=== PATIENT | female | born 1955 | race Caucasian/White ===

== ENCOUNTER 2017-09-10 06:22 | Observation (INO) | payer OTHER ==
[2017-09-08 15:50] LABS: BASOPHILS % 0.4 % (0.0-1.0); EOSINOPHILS # (AUTO) 0.1 (0.0-0.4); EOSINOPHILS % 1.2 % (0.0-6.0); HEMATOCRIT 34.6 % (34.2-44.1); HEMOGLOBIN 12.5 g/dL (12.0-16.0); LYMPHOCYTES # (AUTO) 1.4 (1.0-3.2); LYMPHOCYTES % 26.5 % (18.0-39.1); MEAN CORPUSCULAR HEMOGLOBIN 33.1 pg (28-32); MEAN CORPUSCULAR HGB CONC 36.1 g/dL (31-35); MEAN CORPUSCULAR VOLUME 91.5 fL (81-99); MONOCYTES # (AUTO) 0.3 (0.2-0.8); NEUTROPHILS # (AUTO) 3.4 (2.1-6.9); NEUTROPHILS % 65.7 % (38.7-80.0); PLATELET COUNT 196 x10e3/uL (140-360); RED BLOOD COUNT 3.78 x10e6/uL (3.6-5.1); RED CELL DISTRIBUTION WIDTH 11.4 % (11.7-14.4)
[2017-09-08 15:59] LABS: INR 1.02; PROTHROMBIN TIME 12.6 seconds (11.9-14.5)
[2017-09-08 16:04] LABS: ANION GAP 11.8 mmol/L (8-16); BLOOD UREA NITROGEN 15 mg/dL (7-26); BUN/CREATININE RATIO 21 (6-25); CALCIUM 9.3 mg/dL (8.4-10.2); CARBON DIOXIDE 30 mmol/L (22-29); CHLORIDE 100 mmol/L (98-107); CREATININE, SERUM 0.72 mg/dL (0.57-1.11); EST GLOMERULAR FILTRATION RATE > 60 ML/MIN (60-); GLUCOSE 100 mg/dL (74-118); POTASSIUM 3.8 mmol/L (3.5-5.1); SODIUM 138 mmol/L (136-145)
--- NOTE | 2017-09-08 16:31 | Diagnostic Imaging Report ---
PROCEDURE: Frontal and lateral views of the chest. COMPARISON: None. INDICATIONS: PRE OP CERVICAL FUSION FINDINGS: Lines/tubes: None. Lungs: The lungs are well inflated and clear. There is no evidence of pneumonia or pulmonary edema. Pleura: There is no pleural effusion or pneumothorax. Heart and mediastinum: The heart and the mediastinum are normal. Bones: No acute bony abnormality. IMPRESSION: 1. No acute cardiopulmonary disease. Dictated by: Henri Ojeda M.D. on 09/08/2017 at 16:32 Electronically approved by: Henri Ojeda M.D. on 09/08/2017 at 16:32
[~2017-09-10] VITALS: Ht 160 cm; Wt 63.5 kg
[~2017-09-10 06:22] MED LIST: ATORVASTATIN CA10 MG PO; DIOVAN80 MG PO
--- OUTSIDE RECORDS SUMMARY | 2017-09-10 06:25 | XMS REPORT ---
Author Author [facility] Address Unknown Phone Unavailable Care Team Providers Care Mass Spectrometry Manager Name Role Phone TIMBO ZENG Unavailable Unavailable Problems This patient has no known problems. Allergies, Adverse Reactions, Alerts This patient has no known allergies or adverse reactions. Medications This patient has no known medications. Results Test Description Test Time Test Comments Text Results Atomic Results Result Comments CHEST 2 VIEWS [place] [address] Patient Name: HEMA FIELDS MR #: [id number] : 1955 Age/Sex: 62/F Req #: [id number] Adm Physician: Ordered by: TIMBO ZENG MD Report #: [id number] Location: OR Room/Bed: Procedure: [id number] DX/CHEST 2 VIEWS Exam Date: 09/08/17 Exam Time: 1430 REPORT STATUS: Signed PROCEDURE: Frontal and lateral views of the chest. COMPARISON: None. INDICATIONS: PRE OP CERVICAL FUSION FINDINGS: Lines/tubes: None. Lungs: The lungs are well inflated and clear. There is no evidence of pneumonia or pulmonary edema. Pleura: There is no pleural effusion or pneumothorax. Heart and mediastinum: The heart and the mediastinum are normal. Bones: No acute bony abnormality. IMPRESSION: 1. No acute cardiopulmonary disease. Dictated by: Henri Ojeda M.D. on 09/08/2017 at 16:32 Electronically approved by: Henri Ojeda M.D. on 09/08/2017 at 16:32 Dictated By: HENRI OJEDA MD 1632 Transcribed By: ESTEPHANIE on 09/08/17 1632 COPY TO: TIMBO ZENG MD
[2017-09-10] MEDS ORDERED: CEFAZOLIN SOD 1 GM VIAL ONE (06:55)
[2017-09-10] MEDS ORDERED: CYCLOBENZAPRINE10 MG PO (07:17)
[2017-09-10] MEDS ORDERED: TRAZODONE HCL50 MG PO (07:17)
[2017-09-10] MEDS ORDERED: ACETAMINOPHEN 1000 MG/100 ML 100 ML IV ONE (07:25)
[2017-09-10] MEDS ORDERED: LIDOCAINE HCL (LTA) 4 ML SOLN ONE (07:25)
[2017-09-10] MEDS ORDERED: THROMBIN FOR SOLN 5,000 UNIT VIAL ONE (08:55)
[2017-09-10] MEDS ORDERED: GELATIN SPONGE SZ 100 ONE (08:55)
[2017-09-10] MEDS ORDERED: BACITRACIN 50,000 UNIT VIAL ONE (08:55)
[2017-09-10] MEDS ORDERED: BUPIVACAINE 0.5%/EPI 30 ML SDV INJ ONE (08:55)
[2017-09-10] MEDS ORDERED: LACTATED RINGER'S 1,000 ML IV SCH (10:20)
[2017-09-10] MEDS ORDERED: CARISOPRODOL 350 MG TAB PO PRN (10:30)
[2017-09-10] MEDS ORDERED: CEPACOL SORE THROAT LOZENGES PO PRN (10:30)
[2017-09-10] MEDS ORDERED: ONDANSETRON HCL INJ 2 MG/ML VIAL IV PRN (10:30)
[2017-09-10] MEDS ORDERED: ACETAMINOPHEN 325 MG TAB PO PRN (10:30)
[2017-09-10] MEDS ORDERED: MORPHINE SULFATE 5 MG/ML VIAL IM PRN (10:30)
[2017-09-10] MEDS ORDERED: HYDROMORPHONE 2MG/ML INJ IV PRN (10:30)
[2017-09-10] MEDS ORDERED: PROMETHAZINE HCL (IM) 25 MG/ML VIAL IM PRN (10:30)
[2017-09-10] MEDS ORDERED: MAGNESIUM/ALUMINUM/SIMETHICONE 30 ML UDC PO PRN (10:30)
[2017-09-10] MEDS ORDERED: FENTANYL CITRATE/PF 100MCG/2 ML INJ ONE ×2 (10:45→17:43)
--- NOTE | 2017-09-10 11:06 | Operative Report ---
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 POSTOPERATIVE DIAGNOSIS: C3-C4 and C4-C5 spondylosis with spinal stenosis and radiculopathy, M50.020. PROCEDURES 1. C3-C4 anterior cervical diskectomy and microsurgical osteophyte resection and allograft fusion, 84410. 2. C4-C5 anterior cervical diskectomy and microsurgical osteophyte resection and allograft fusion, 25348. 3. Preparation of tricortical iliac crest allograft, 28175. 4. C3-C4 and C4-C5 anterior cervical plating with Synthes small stature CSLP plate, 82533. ANESTHESIA: General. INDICATIONS: The patient is a 62-year-old woman who presents with C3-4 and C4-5 spondylosis and disk osteophyte complexes producing central and bilateral foraminal stenosis. She was taken to the operating room for 2-level anterior cervical decompression and fusion. PROCEDURE: After induction of general anesthesia, the patient was placed on the operating table in the supine position. The right side of the neck was prepped and draped in a sterile fashion. The fluoroscopic C-arm was positioned in cross-table lateral orientation. A transverse incision was created on the right side of the neck superimposed on the C4 vertebral body as determined by fluoroscopy. The platysma was divided in line with the incision. A subplatysmal dissection was carried out. An avascular plane of dissection was developed medial to the sternocleidomastoid muscle and was followed medial to the carotid sheath to the anterior border of the cervical spine. The deep cervical fascia was opened. The esophagus was retracted to the left. The attachments of the longus coli muscles to the anterolateral aspects of vertebral bodies of C3, C4 and C5 were divided. The anterior longitudinal ligament was resected. [place] posts were inserted into C3 and C5, and the [place] distractor was used to distract the disk space. The anterior annulus of the disk was incised with a #11 blade, and the contents of the 2 disks were evacuated with angled curets and pituitary rongeurs. The posterior osteophytes were meticulously drilled with a 2-mm cutting bur on a high-speed drill until they were completely removed. The posterior annulus of the disk, herniated disk material, and the posterior longitudinal ligament were resected layer by layer until the dura was fully exposed and decompressed. The medial aspects of the uncinate processes were resected bilaterally to further expose and decompress the origins of the corresponding nerve roots. After satisfactory decompression had been achieved, the endplates were prepared for fusion. Two pieces of tricortical iliac crest allograft were cut to sizes and shapes of the disk spaces and were inserted into the disk spaces under distraction and fluoroscopic guidance. The distraction was released, and the distraction posts were removed. A Synthes CSLP small stature anterior cervical plate measuring 28 mm was selected and was affixed to the vertebral bodies of C3, C4 and C5 with 3 pairs of 14-mm screws. All screw holes were drilled and tapped under lateral fluoroscopic guidance. All screws were locked with the appropriate locking screws. An excellent construct was obtained. The wound was copiously irrigated with Bacitracin solution. Meticulous hemostasis was secured. Retractor was removed. The platysma was closed with 3-0 Vicryl sutures. The skin was closed with 4-0 Monocryl sutures in a subcuticular fashion. Steri-Strips and dressing were applied. The patient was awakened, extubated and taken to the postanesthesia care unit in stable condition. No intraoperative complications were encountered. Estimated blood loss was 30 mL. Job#: [id number]
[2017-09-10 12:10] VITALS: BP 142/65
[2017-09-10] MEDS: OXYCODONE/ACETAMINOPHEN 5-325 1 EACH TABLET PO PRN ×2 (13:20→21:07)
[2017-09-10 13:25] VITALS: BP 142/65
[2017-09-10] MEDS ORDERED: CEFAZOLIN SOD 1 GM/NS 50ML 50 ML IV SCH (14:00)
[2017-09-10 16:31] VITALS: BP 103/59
[2017-09-10] MEDS: CYCLOBENZAPRINE HCL 10 MG TAB PO SCH ×2 (16:40→21:11)
[2017-09-10] MEDS: CEFAZOLIN SOD 1 GM VIAL IV SCH (17:05)
[2017-09-10] MEDS ORDERED: PROPOFOL IV EMULSION 10 MG/ML 20 ML VIAL ONE (17:29)
[2017-09-10] MEDS ORDERED: LIDOCAINE HCL 2% JELLY 5 ML TUBE ONE (17:29)
[2017-09-10] MEDS ORDERED: LIDOCAINE HCL 2% LOCAL INJ 5 ML SDV VIAL INJ ONE (17:29)
[2017-09-10] MEDS ORDERED: SEVOFLURANE INHAL SOLN 250 ML PEN BTL ONE (17:29)
[2017-09-10] MEDS ORDERED: ROCURONIUM BROMIDE 10 MG/ML 5ML VIAL ONE (17:29)
[2017-09-10] MEDS ORDERED: DEXAMETHASONE SOD PHOS INJ 4 MG/ML VIAL ONE (17:29)
[2017-09-10] MEDS ORDERED: ONDANSETRON HCL INJ 2 MG/ML VIAL ONE (17:29)
[2017-09-10] MEDS ORDERED: MIDAZOLAM HCL 2 MG/2 ML VIAL ONE (17:43)
[2017-09-10 18:12] VITALS: BP 103/59
[2017-09-10 20:00] VITALS: BP 105/57
[2017-09-10] MEDS ORDERED: ZOLPIDEM TARTRATE 5 MG TAB PO PRN (21:00)
[2017-09-10] MEDS ORDERED: ATORVASTATIN 10 MG TAB PO SCH (21:00)
[2017-09-10] MEDS ORDERED: TRAZODONE HCL 50 MG TAB PO SCH (21:00)
[2017-09-11] VITALS: BP 99/54
[2017-09-11] MEDS: CEFAZOLIN SOD 1 GM VIAL IV SCH ×2 (01:02→08:20)
[2017-09-11 04:00] VITALS: BP 103/56
[2017-09-11 08:16] VITALS: BP 103/55
[2017-09-11] MEDS: OXYCODONE/ACETAMINOPHEN 5-325 1 EACH TABLET PO PRN (08:20)
[2017-09-11] MEDS: CYCLOBENZAPRINE HCL 10 MG TAB PO SCH (08:20)
[2017-09-11] MEDS ORDERED: VALSARTAN 80 MG TAB PO SCH (09:00)
[2017-09-11 10:01] VITALS: BP 103/55
--- NOTE | 2017-09-11 16:13 | Diagnostic Imaging Report ---
Cervical Spine, 2 views HISTORY: Pain COMPARISON: None. FINDINGS: Limited sensitivity for detection of subtle fractures and ligamentous abnormalities. On the lateral view, the cervical spine is visualized from the skull base to C7. The alignment is normal. C3-C5 anterior fusion with discectomy. Hardware is intact. No acute displaced fracture involving the visualized cervical spine. Moderate degenerative changes of the C5-C7. Mildly increased prevertebral soft tissues thickness at the level of C3, measuring 0.9 cm. IMPRESSION: Mildly increased prevertebral soft tissue thickness. If clinically indicated soft tissue neck CT can be obtained for further evaluation. Status post C3-C5 anterior fusion with discectomy. Hardware is intact. Signed by: Dr. Henri Ojeda MD on 09/11/2017 4:09 PM
== END 2017-09-11 10:56 | disposition home or self-care (01) ==
LOC: OR 06:22 → IMCU 10:59
PROVIDERS: ADMIT Neurological Surgery; ATTEND Neurological Surgery
DX: M50.01 Cervical disc disorder with myelopathy, high cervical region (principal); G56.01 Carpal tunnel syndrome, right upper limb; M50.021 Cervical disc disorder at C4-C5 level with myelopathy; E78.5 Hyperlipidemia, unspecified; Z87.891 Personal history of nicotine dependence; Z88.5 Allergy status to narcotic agent; Z88.8 Allergy status to other drugs, medicaments and biological substances
CPT/HCPCS: 20931; 22551; 22552; 22845; 36415; 71046; 72040; 77003; 80048; 85025; 85610; 85730; 86850; 86900; 88304; 93005; C1713 ×4; C1768; G0378 ×2; J0690 ×2; J1100; J2001 ×2; J2250; J2405; J2270

== ENCOUNTER → 2017-10-08 | Outpatient (CLI) | payer OTHER ==
[~2017-10-08] MED LIST changes: +CYCLOBENZAPRINE10 MG PO; +TRAZODONE HCL50 MG PO
--- NOTE | 2017-10-08 14:43 | Diagnostic Imaging Report ---
PROCEDURE: C-SPINE AP AND LAT WITH FLEX AND EXT COMPARISON: C-spine 09/11/2017. INDICATIONS: POST FUSION C-SPINE FINDINGS: C1 through C7 are visualized on the lateral view. Mild reversal of the cervical lordosis may be related muscle spasm or positioning. Re-demonstration of status post anterior fusion of C3-C5 with metallic plate and transfixing screws which are intact and in adequate alignment. There has been no significant interval bony fusion. Flexion and extension views demonstrate no change in alignment. The prevertebral soft tissues are not swollen. Moderate disc space narrowing at C6-C7 and C7-T1. Mild diffuse facet arthrosis with moderate at C7-T1. CONCLUSION: Status post anterior fusion of C3-C5 with no significant interval bony fusion. Intact hardware with adequate alignment. No instability identified on flexion extension views. Dictated by: Zuhair Castaneda M.D. on 10/08/2017 at 14:45 Electronically approved by: Zuhair Castaneda M.D. on 10/08/2017 at 14:45
== END ==
LOC: RAD 13:18
PROVIDERS: ATTEND Neurological Surgery
DX: M50.20 Other cervical disc displacement, unspecified cervical region (principal); Z98.1 Arthrodesis status
CPT/HCPCS: 72050

== ENCOUNTER → 2018-04-29 | Day surgery (SDC) | payer MEDICARE, OTHER ==
--- NOTE | 2018-04-27 15:38 | Diagnostic Imaging Report ---
EXAMINATION: PA and lateral views of the chest. COMPARISON: 09/08/2017 CLINICAL HISTORY: Preop for neurosurgical procedure. DISCUSSION: Lungs are well-inflated. No focal airspace consolidation, pleural effusion, or pneumothorax. Cardiomediastinal contour and pulmonary vasculature are within normal limits. Hazy opacity at the cardiac apex likely reflects prominent epicardial fat. No acute osseous abnormality. Posttraumatic deformity of the midshaft of the left clavicle. IMPRESSION: No acute cardiopulmonary abnormalities. Signed by: Dr. John Thrasher M.D. on 04/27/2018 3:35 PM
[2018-04-27 15:40] LABS: BASOPHILS % 0.2 % (0.0-1.0); EOSINOPHILS % 0.9 % (0.0-6.0); HEMATOCRIT 35.4 % (34.2-44.1); HEMOGLOBIN 12.6 g/dL (12.0-16.0); LYMPHOCYTES # (AUTO) 1.5 (1.0-3.2); LYMPHOCYTES % 33.6 % (18.0-39.1); MEAN CORPUSCULAR HEMOGLOBIN 33.4 pg (28-32); MEAN CORPUSCULAR HGB CONC 35.6 g/dL (31-35); MEAN CORPUSCULAR VOLUME 93.9 fL (81-99); MONOCYTES # (AUTO) 0.3 (0.2-0.8); NEUTROPHILS # (AUTO) 2.7 (2.1-6.9); NEUTROPHILS % 58.1 % (38.7-80.0); PLATELET COUNT 158 x10e3/uL (140-360); RED BLOOD COUNT 3.77 x10e6/uL (3.6-5.1); RED CELL DISTRIBUTION WIDTH 11.6 % (11.7-14.4)
[2018-04-27 15:50] LABS: INR 0.84; PROTHROMBIN TIME 12.3 seconds (11.9-14.5)
[2018-04-27 15:51] LABS: PARTIAL THROMBOPLASTIN TIME 27.7 seconds (23.8-35.5)
[~2018-04-29] MED LIST changes: +ATORVASTATIN CA20 MG PO; +BUPIVACAINE HCL 0.5% INJ 30 ML VIAL INJ ONE; +CEFAZOLIN SOD 1 GM VIAL ONE; +DEXAMETHASONE SOD PHOS INJ 4 MG/ML VIAL ONE; +DIOVAN HCT 3201 EACH PO; +DIOVAN160 MG PO; +FENTANYL CITRATE/PF 100MCG/2 ML INJ ONE; +HYDROCHLOROTHIA25 MG; +KETOROLAC TROMETHAMINE 30 MG/ML VIAL ONE; +LIDOCAINE HCL 2% LOCAL INJ 5 ML SDV VIAL INJ ONE; +MIDAZOLAM HCL 2 MG/2 ML VIAL ONE; +ONDANSETRON HCL INJ 2 MG/ML VIAL ONE; +PROPOFOL IV EMULSION 10 MG/ML 20 ML VIAL ONE; +ROCURONIUM BROMIDE 10 MG/ML 5ML VIAL ONE; +SEVOFLURANE INHAL SOLN 250 ML PEN BTL ONE; +VALSARTAN HCTZ
--- OUTSIDE RECORDS SUMMARY | 2018-04-29 06:49 | XMS REPORT | Continuity of Care Document ---
Author Author [facility] Interface Address Unknown Phone Unavailable Problems Problem Status Onset Date Classification Date Reported Comments Source Medications Medication Details Route Status Patient Instructions Ordering Provider Order Date Source Atorvastatin Calcium 10 Mg Tablet Today At 9:00PM [facility] Cyclobenzaprine Hcl 10 Mg Tablet Three Times A Day [facility] Trazodone Hcl 50 Mg Tablet Daily [facility] Valsartan (Diovan) 80 Mg Tab Daily [facility] Allergies, Adverse Reactions, Alerts Substance Category Reaction Severity Reaction type Status Date Reported Comments Source Lisinopril Unknown Allergy to Substance Active 09/08/2017 [facility] Codeine Unknown Allergy to Substance Active 09/08/2017 [facility] Immunizations Immunization Date Given Site Status Last Updated Comments Source Results Order Name Results Value Reference Range Date Interpretation Comments Source Vital Signs Vital Sign Value Date Comments Source Encounters Location Location Details Encounter Type Encounter Number Reason For Visit Attending Provider ADM Date DC Date Status Source Discharged Inpatient (obs) [id number] TIMBO ZENG MD 09/10/2017 09/11/2017 [facility] Procedures Procedure Code Date Perfomer Comments Source Anterior cervical discectomy [id number] 09/10/2017 [facility] X-ray of chest, two views [id number] 09/08/2017 [facility]
[2018-04-29 07:55] LABS: ANION GAP 13.9 mmol/L (8-16); BLOOD UREA NITROGEN 15 mg/dL (7-26); BUN/CREATININE RATIO 22 (6-25); CALCIUM 9.6 mg/dL (8.4-10.2); CARBON DIOXIDE 26 mmol/L (22-29); CHLORIDE 102 mmol/L (98-107); CREATININE, SERUM 0.69 mg/dL (0.57-1.11); EST GLOMERULAR FILTRATION RATE > 60 ML/MIN (60-); GLUCOSE 92 mg/dL (74-118); POTASSIUM 3.9 mmol/L (3.5-5.1); SODIUM 138 mmol/L (136-145)
[2018-04-29 10:11] VITALS: BP 116/70
--- NOTE | 2018-04-29 11:27 | Operative Report ---
DATE OF PROCEDURE: April 29, 2018 PREOPERATIVE DIAGNOSIS: Right carpal tunnel syndrome. POSTOPERATIVE DIAGNOSIS: Right carpal tunnel syndrome. PROCEDURE: Right carpal tunnel release. ANESTHESIA: General. INDICATIONS: The patient is a woman who presents with right carpal tunnel syndrome and was taken to the operating room for a right carpal tunnel release. PROCEDURE: After induction of general anesthesia, the patient was placed on the operating table in supine position with the right hand abducted over a hand table. The right hand, wrist and forearm were prepped and draped circumferentially in a sterile fashion. A tourniquet was inflated over the upper arm. A small midline incision was created over the median palmar crease of the hand just distal to the distal flexor crease of the wrist. The subcutaneous fat was divided. The transverse carpal ligament was exposed and incised with a #15 C-blade until the underlying median nerve came into view. As the assistant at surgery retracted the skin edges, the transverse carpal ligament was divided proximally and distally until the full length of the ligament had been divided, and the full length of the median nerve was exposed and decompressed within the carpal tunnel. The point of maximum compression of the nerve appeared to be 3 cm distal to the distal flexor crease of the wrist, where the ligament was at its thickest. More distally, the recurrent motor branch of the nerve was preserved within its fat pad. The wound was irrigated with Bacitracin solution. The subcutaneous layer was closed with 3-0 Vicryl suture. The skin was closed with 3-0 nylon suture in a vertical mattress fashion. A dressing was applied. The patient was awakened, extubated and taken to the postanesthesia care unit in stable condition. No intraoperative complications were encountered. Estimated blood loss was minimal. Job#: [id number]
== END | disposition home or self-care (01) ==
LOC: OR 06:46
PROVIDERS: ATTEND Neurological Surgery
DX: G56.01 Carpal tunnel syndrome, right upper limb (principal); I10 Essential (primary) hypertension; E78.5 Hyperlipidemia, unspecified; Z01.810 Encounter for preprocedural cardiovascular examination; Z01.812 Encounter for preprocedural laboratory examination; Z87.891 Personal history of nicotine dependence; Z98.1 Arthrodesis status; Z88.8 Allergy status to other drugs, medicaments and biological substances
CPT/HCPCS: 36415 ×2; 64721; 71046; 80048; 85025; 85610; 85730; 93005; J0690; J1100; J1885; J2001; J2250; J2405; J2704